=== PATIENT | male | born 1975 | race Caucasian/White ===

== ENCOUNTER 2017-11-11 09:56 | Emergency (ER) | payer OTHER ==
[2017-11-11 11:10] VITALS: BMI 24.1
[2017-11-11] MEDS ORDERED: Morphine 2 mg/ml ISec IVP STA (11:42)
[2017-11-11] MEDS ORDERED: Clindamycin 600mg/50ml D5W 600 MG/50 ML VIAL IVPB STA (11:54)
--- NOTE | 2017-11-11 12:00 | ED PDOC ---
Arrival/HPI - General Chief Complaint: Abnormal Skin Integrity Time Seen by Provider: 11/11/17 11:05 - History of Present Illness Narrative History of Present Illness (Text): 42 y/o M p/w R leg pain x few days. Patient states sutures on his R thigh spontaneously ripped and he has been having pain of the area. He denies fever, chills, chest pain, dyspnea, nausea, vomiting. Patient comes with paper work indicating that he was admitted at [facility] and discharged within the past 2 weeks. He states he was admitted there for over 30 days. He was diagnosed with abscess and DVT. He states he filled his discharge prescription for Percocet but he never filled his prescription for Eliquis, states he did not realize that was on the discharge papers. His discharge papers indicate that he is to follow up with Abimael Berumen ([facility]) and Dr. Gutierres (surgery) but he has not made an appointment with either. He states he did not realize he had to follow up with them. When asked what he thought was going to happen with the sutures in his leg , he states, "No se." [facility] [place] Emergency Department Technician [id number] Past Medical History - Cardiac Hx Cardiac Disorders: Yes - Integumentary Hx Dermatological Disorder: Yes (right thigh abscess) - Psychiatric Hx Substance Use: No Family/Social History Family/Social History: No Known Family HX Smoking Status: Current Some Days Smoker Hx Alcohol Use: Yes Hx Substance Use: No Allergies/Home Meds Allergies/Adverse Reactions: Allergies No Known Allergies Allergy (Verified 11/11/17 11:08) Home Medications: Home Meds Medication Instructions Recorded Confirmed Apixaban [Eliquis] 5 mg PO BID 11/11/17 11/11/17 oxyCODONE/Acetaminophen [Percocet 1 tab PO PRN PRN 11/11/17 11/11/17 5/325 mg Tab] Review of Systems - Physician Review All systems were reviewed & negative as marked: Yes - Review of Systems Constitutional: absent: Fevers Respiratory: absent: SOB Cardiovascular: absent: Chest Pain Physical Exam - Physical Exam Narrative Physical Exam (Text): Gen: NAD Head: NC/AT Eyes: PERRL ENT: MMM Neck: Supple Chest: No tenderness CV: Regular rate Lungs: CTA b/l Abd: Soft, NT Back: No CVA tenderness Extremities: FROM x 4. No edema. Skin: Incised area on R medial thigh with ruptured sutures, surrounding induration, nontender. Small amount of pus seen within wound. Neuro: Alert, no focal deficit Vital Signs Temp Pulse Resp BP Pulse Ox 11/11/17 13:39 62 20 130/84 100 11/11/17 10:19 98.8 F 88 18 133/83 100 Medical Decision Making ED Course and Treatment: Repeat duplex negative. Repeat labs to evaluate for leukocytosis. Restart antibiotics. Spent considerable amount of time with patient explaining his discharge diagnoses from [facility] and the plan for follow up with both doctors. Sutures from open wound removed and wound dressed with bacitracin and gauze. Remaining sutures left in place for patient's follow up. - Lab Interpretations Lab Results: 11/11/17 12:26 11/11/17 12:26 Lab Results 11/11/17 12:26: Sodium 140, Potassium 3.8, Chloride 105, Carbon Dioxide 27, Anion Gap 12, BUN 9, Creatinine 0.6 L, Est GFR ( Amer) > 60, Est GFR (Non -Af Amer) > 60, Random Glucose 87, Calcium 9.7, Total Bilirubin 0.2, AST 25, ALT 19, Alkaline Phosphatase 103, Total Protein 8.4 H, Albumin 4.2, Globulin 4.2 , Albumin/Globulin Ratio 1.0 L 11/11/17 12:26: WBC 7.9, RBC 4.13, Hgb 12.4 L, Hct 37.2 L, MCV 90.1, MCH 30.0, MCHC 33.3, RDW 14.5, Plt Count 366, MPV 9.1, Gran % 45.0 L, Lymph % (Auto) 26.3 , [place] % (Auto) 7.1 H, Eos % (Auto) 20.6 H, Baso % (Auto) 1.0, Gran # 3.53, Lymph # (Auto) 2.1, [place] # (Auto) 0.6, Eos # (Auto) 1.6 H, Baso # (Auto) 0.08, Neutrophils % (Manual) 59, Lymphocytes % (Manual) 19 L, Monocytes % (Manual) 16 H, Eosinophils % (Manual) 6 H, Platelet Evaluation Normal - RAD Interpretation Radiology Orders: 11/11/17 11:41 DUPLEX LOWER EXTRM VEIN BILAT [US] Stat - Medication Orders Current Medication Orders: Discontinued Medications Clindamycin Phosphate (Cleocin) 600 mg in 50 mls @ 50 mls/hr IVPB STAT STA PRN Reason: Protocol Stop: 11/11/17 12:53 Last Admin: 11/11/17 12:29 Dose: 50 mls/hr eMAR Start Stop Document 11/11/17 12:29 RY (Rec: 11/11/17 12:30 [id number] Intravenous Solution Start Date 11/11/17 Start Time 12:29 End Date 11/11/17 End time 13:01 Total Infusion Time 32 Morphine Sulfate (Morphine) 2 mg IVP STAT STA Stop: 11/11/17 11:43 Last Admin: 11/11/17 12:28 Dose: 2 mg MAR Pain Assessment Document 11/11/17 12:28 Maren (Rec: 11/11/17 12:29 [id number]) Pain Reassessment Is this a pain reassessment? No Sleep Is patient sleeping during reassessment? No Presence of Pain Presence of Pain Yes Pain Scale Used Pain Scale Used Numeric IVP Administration Document 11/11/17 12:28 RY (Rec: 11/11/17 12:29 [id number]) Charges for Administration # of IVP Administrations 1 Re-Assess: LEXI Pain Assessment Document 11/11/17 13:28 Maren (Rec: 11/11/17 13:42 [id number]) Pain Reassessment Is this a pain reassessment? Yes Sleep Is patient sleeping during reassessment? No Presence of Pain Presence of Pain Yes Pain Scale Used Pain Scale Used Numeric Description Description Intermittent Intensity of Pain at present 4 Disposition/Present on Arrival - Present on Arrival Any Indicators Present on Arrival: Yes History of DVT/PE: Yes History of Uncontrolled Diabetes: No Urinary Catheter: No History of Decub. Ulcer: No History Surgical Site Infection Following: None - Disposition Have Diagnosis and Disposition been Completed?: Yes Diagnosis: Encounter for wound care, Abscess Disposition: HOME/ ROUTINE Disposition Time: 13:10 Patient Plan: Discharge Condition: FAIR Discharge Instructions (ExitCare): Abscess Incision and Drainage (DC) Prescriptions: Clindamycin [Cleocin] 300 mg PO QID #40 cap Referrals: Bautista Gutierres MD [Medical Doctor] - Follow up with primary [facility] [Outside] - Follow up with primary [facility] [Outside] - Follow up with primary Forms: [employer] (Italian)
[2017-11-11 12:32] LABS: BASO # 0.08 K/mm3 (0.0-2.0); EOS # 1.6 (0.0-0.7); EOS % 20.6 % (1.5-5.0); GRAN # 3.53 (1.4-6.5); HEMOGLOBIN 12.4 g/dL (14.0-18.0); LYMPH # 2.1 (1.2-3.4); LYMPH % 26.3 % (22.0-35.0); MEAN CELL VOLUME 90.1 fl (80.0-105.0); MEAN CORPUSCULAR HGB CONC 33.3 g/dl (31.0-37.0); MEAN PLATELET VOLUME 9.1 fl (7.0-11.0); MONO # 0.6 (0.1-0.6); MONO % 7.1 % (1.0-6.0); PLATELET COUNT 366 10^3/uL (120.0-450.0); RBC 4.13 10^6/uL (3.5-6.1); RED CELL DISTRIBUTION WIDTH 14.5 % (11.5-14.5); WHITE BLOOD COUNT 7.9 10^3/ul (4.5-11.0)
[2017-11-11 12:48] LABS: ALBUMIN 4.2 g/dL (3.0-4.8); ALT/SGPT 19 U/L (7-56); AST/SGOT 25 U/L (17-59); BLOOD UREA NITROGEN 9 mg/dL (7-21); CALCIUM 9.7 mg/dL (8.4-10.5); GFR NON-AFRICAN AMERICAN > 60
[2017-11-11 13:05] LABS: EOSINOPHIL 6 % (0.0-3.0); LYMPHOCYTE 19 % (22.0-35.0); MONOCYTE 16 % (1.0-6.0); NEUTROPHIL 59 % (50.0-70.0); PLATELET ESTIMATE NORMAL (NORMAL)
[2017-11-11 15:14] VITALS: BP 129/77; PULSE 66; RESP 18; TEMP 98.6; O2SAT 99
--- NOTE | 2017-11-11 17:53 | US ---
HISTORY: Leg pain and swelling. Evaluate for DVT PHYSICIAN(S): Santhosh Carlton MD. TECHNIQUE: Duplex sonography and color-flow Doppler with graded compression were used to evaluate the deep venous systems of both lower extremities. FINDINGS: The visualized deep venous systems of both lower extremities are sonographically normal and compressible. Normal wave forms and augmentation are seen. There is no sonographic evidence for deep venous thrombosis in the visualized segments of both lower extremities. IMPRESSION: No sonographic evidence for deep venous thrombosis in the visualized segments of both lower extremities.
== END 2017-11-11 15:19 | disposition home or self-care (01) ==
LOC: ED 09:56
DX: L02.415 Cutaneous abscess of right lower limb (principal)
CPT/HCPCS: 80053; 85025; 93970; 96365; 96375; 99283; J2270

== ENCOUNTER 2018-02-18 01:52 | Observation (INO) | payer OTHER ==
--- NOTE | 2018-02-18 02:03 | ED PDOC ---
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 Patient reports he was vomiting for 2 days and states he noted blood in his vomit tonight. Patient admits to drinking tonight and states he had multiple shots of alcohol. Patient denies any fever, chills, chest pain, shortness of breath, diarrhea, urinary symptoms, back pain, neck pain, headache, dizziness, or any other complaints. Time/Duration: Other (2 days) Symptom Onset: Gradual Symptom Course: Unchanged Activities at Onset: Light Past Medical History - Provider Review Nursing Documentation Reviewed: Yes - Cardiac Hx Cardiac Disorders: Yes - Integumentary Hx Dermatological Disorder: Yes (right thigh abscess) - Psychiatric Hx Substance Use: No Family/Social History - Physician Review Nursing Documentation Reviewed: Yes Family/Social History: No Known Family HX Smoking Status: Current Some Days Smoker Hx Alcohol Use: Yes Hx Substance Use: No Allergies/Home Meds Allergies/Adverse Reactions: Allergies No Known Allergies Allergy (Verified 11/11/17 11:08) Home Medications: Home Meds Medication Instructions Recorded Confirmed Apixaban [Eliquis] 5 mg PO BID 11/11/17 11/11/17 oxyCODONE/Acetaminophen [Percocet 1 tab PO PRN PRN 11/11/17 11/11/17 5/325 mg Tab] Review of Systems - Physician Review All systems were reviewed & negative as marked: Yes - Review of Systems Constitutional: absent: Fevers, Other (Chills) Respiratory: absent: SOB Cardiovascular: absent: Chest Pain Gastrointestinal: Nausea, Vomiting, Hematemesis. absent: Abdominal Pain, Diarrhea Genitourinary Male: absent: Dysuria, Frequency, Hematuria Musculoskeletal: absent: Back Pain, Neck Pain Neurological: absent: Headache, Dizziness Physical Exam Vital Signs Reviewed: Yes Temperature: Afebrile Blood Pressure: Normal Pulse: Regular Respiratory Rate: Normal Appearance: Positive for: Well-Appearing, Non-Toxic, Comfortable Pain Distress: None Mental Status: Positive for: Alert and Oriented X 3 - Systems Exam Head: Present: Atraumatic, Normocephalic Pupils: Present: PERRL Extroacular Muscles: Present: EOMI Conjunctiva: Present: Normal Mouth: Present: Moist Mucous Membranes Neck: Present: Normal Range of Motion Respiratory/Chest: Present: Clear to Auscultation, Good Air Exchange. No: Respiratory Distress, Accessory Muscle Use Cardiovascular: Present: Regular Rate and Rhythm, Normal S1, S2. No: Murmurs Abdomen: No: Tenderness, Distention, Peritoneal Signs Back: Present: Normal Inspection Upper Extremity: Present: Normal Inspection. No: Cyanosis, Edema Lower Extremity: Present: Normal Inspection. No: Edema Neurological: Present: GCS=15, CN II-XII Intact, Speech Normal Skin: Present: Warm, Dry, Normal Color. No: Rashes Psychiatric: Present: Alert, Oriented x 3, Normal Insight, Normal Concentration, Intoxicated Medical Decision Making ED Course and Treatment: 02/18/18 02:02 Impression: 42 year old male presents complaining of vomiting for the past 2 days and noted blood in vomit tonight. Patient admits to drinking tonight. Plan: -- Labs -- EKG -- Chest X-ray -- Pepcid, IV Fluids, Zofran Inj -- Reassess and disposition Progress Notes: 02/18/18 02:16 EKG shows NSR at 74 BPM normal EKG. Interpreted by me. 02/18/18 03:42 CXR Impression: As read by me, no acute process. 02/18/18 04:11 Case discussed with medical management trainer and Dr. Earnest Quiñones who is aware and agrees with the plan. Accepts patient into hospitalist service. - Lab Interpretations I have reviewed the lab results: Yes - RAD Interpretation Clothing Man: ED Physician - EKG Interpretation Interpreted by ED Physician: Yes Type: 12 lead EKG - Scribe Statement The provider has reviewed the documentation as recorded by the Milvia Carrillo Provider Scribe Attestation: All medical record entries made by the Joseloibe were at my direction and personally dictated by me. I have reviewed the chart and agree that the record accurately reflects my personal performance of the history, physical exam, medical decision making, and the department course for this patient. I have also personally directed, reviewed, and agree with the discharge instructions and disposition. Disposition/Present on Arrival - Present on Arrival Any Indicators Present on Arrival: No History of DVT/PE: Yes History of Uncontrolled Diabetes: No Urinary Catheter: No History of Decub. Ulcer: No History Surgical Site Infection Following: None - Disposition Have Diagnosis and Disposition been Completed?: Yes Diagnosis: Hematemesis, Alcohol intoxication, Elevated troponin Disposition: HOSPITALIZED Disposition Time: 04:41 Patient Plan: Observation Condition: STABLE
[2018-02-18] MEDS ORDERED: Sodium Chloride 0.9% 1,000 ML IV SCH (02:15)
[2018-02-18 03:01] LABS: ALB/GLOB RATIO 1.2 (1.1-1.8); ALBUMIN 4.4 g/dL (3.0-4.8); ALT/SGPT 23 U/L (7-56); AST/SGOT 25 U/L (17-59); BLOOD UREA NITROGEN 11 mg/dL (7-21); CALCIUM 8.9 mg/dL (8.4-10.5); GFR NON-AFRICAN AMERICAN > 60; LIPASE 46 U/L (23-300)
[2018-02-18 03:17] LABS: HEMOGLOBIN 15.5 g/dL (14.0-18.0); MEAN CELL VOLUME 83.5 fl (80.0-105.0); MEAN CORPUSCULAR HEMOGLOBIN 29.4 pg (25.0-35.0); MEAN CORPUSCULAR HGB CONC 35.1 g/dl (31.0-37.0); MEAN PLATELET VOLUME 9.1 fl (7.0-11.0); RBC 5.28 10^6/uL (3.5-6.1); RED CELL DISTRIBUTION WIDTH 15.3 % (11.5-14.5)
[2018-02-18 03:21] LABS: INR 0.97; PARTIAL THROMBOPLASTIN TIME 29.7 Seconds (25.1-36.5); PROTHROMBIN TIME 11.1 SECONDS (9.4-12.5)
[2018-02-18 03:35] LABS: TROPONIN I 0.19 ng/mL
--- NOTE | 2018-02-18 05:03 | CP.PCM.HP ---
History of Present Illness - History of Present Illness History of Present Illness: Víctor Marin DO PGY1 Internal Medicine Cath Laboratory Technician CC: Hemetemesis / EtOH Patient is a 42M w/ a PMH of DVT, who presented to [facility] ED on 02/18/17 via EMS for complaints of vomiting x2 days. Upon evaluation it was noted that patient is very intoxicated. He reported that he has been having episodes of vomiting blood over the past few days, and reports emesis is grossly bloody. Upon chart review it was noted that patient has had a hx of DVT where he was to follow up w/ [facility] at [facility], however it appears patient has not followed up; He does report that he is NOT on any form of anticoagulation. Upon further evaluation he reported he has had bloody stools however bedside guac was negative. He reports that this emesis has no inciting or remitting event. Patient denies dinking however, he then also reported drinking "a little" today. Upon presentation in ED patient has a EtOH level of 230. Upon ROS pt reported mild chest pain prior to presentation which has resolved however he does not have CP at time of evaluation. Patient denies any SOB, Cough, Abd pain, N/V/D/C, Urinary discomfort. Remainder of 12 system ROS is negative. PMD: Denies Pharmacy: Denies PMH: Denies PSH: Denies Allergies: NKDA Fam Hx: Denies Social: 6-7 cig daily, 6pk beer daily, no illicit Present on Admission - Present on Admission Any Indicators Present on Admission: No History of DVT/PE: Yes Review of Systems - Review of Systems All systems: reviewed and no additional remarkable complaints except Review of Systems: as per HPI Past Patient History - Past Social History Smoking Status: Current Some Days Smoker - CARDIAC Hx Cardiac Disorders: Yes - ENDOCRINE/METABOLIC Hx Diabetes Mellitus Type 2: Yes - INTEGUMENTARY Hx Dermatological Problems: Yes (right thigh abscess) - PSYCHIATRIC Hx Substance Use: No - ANESTHESIA Hx Anesthesia: No Hx Anesthesia Reactions: No Hx Malignant Hyperthermia: No Meds Allergies/Adverse Reactions: Allergies Allergy/AdvReac Type Severity Reaction Status Date / Time No Known Allergies Allergy Verified 11/11/17 11:08 Physical Exam - Constitutional Appears: Confused - Head Exam Head Exam: ATRAUMATIC, NORMOCEPHALIC - Eye Exam Eye Exam: EOMI, Normal appearance, PERRL - ENT Exam ENT Exam: Mucous Membranes Moist - Respiratory Exam Respiratory Exam: Clear to Auscultation Bilateral, NORMAL BREATHING PATTERN - Cardiovascular Exam Cardiovascular Exam: RRR, +S1, +S2 - GI/Abdominal Exam GI & Abdominal Exam: Normal Bowel Sounds, Soft. absent: Tenderness - Extremities Exam Additional comments: HOMANS + R>L Distal pulses 2+ DP/PT BL - Neurological Exam Additional comments: Lethargic/ Somnolent; Appears to be intoxicate Requires continual arousable to hold conversation - Skin Skin Exam: Dry, Intact, Normal Color, Warm Results - Vital Signs Recent Vital Signs: Last Vital Signs Temp 98.1 F 02/18/18 02:19 Pulse 64 02/18/18 04:55 Resp 18 02/18/18 04:55 BP 119/79 02/18/18 04:55 Pulse Ox 99 02/18/18 04:55 - Labs Result Diagrams: 02/18/18 02:40 02/18/18 02:40 Labs: Laboratory Results - last 24 hr 02/18/18 02/18/18 02/18/18 02:40 02:40 02:40 WBC RBC Hgb Hct MCV MCH MCHC RDW Plt Count MPV PT 11.1 INR 0.97 APTT 29.7 Sodium 144 Potassium 4.0 Chloride 108 H Carbon Dioxide 28 Anion Gap 11 BUN 11 Creatinine 0.8 Est GFR ( Amer) > 60 Est GFR (Non-Af Amer) > 60 Random Glucose 107 Calcium 8.9 Total Bilirubin 0.2 AST 25 ALT 23 Alkaline Phosphatase 121 Lactate Dehydrogenase 558 Total Creatine Kinase 132 Troponin I 0.19 H* Total Protein 8.1 Albumin 4.4 Globulin 3.7 Albumin/Globulin Ratio 1.2 Lipase 46 Alcohol, Quantitative 230 H Blood Type Antibody Screen BBK History Checked 02/18/18 02/18/18 02:40 02:40 WBC 7.0 RBC 5.28 Hgb 15.5 D Hct 44.1 MCV 83.5 D MCH 29.4 MCHC 35.1 RDW 15.3 H Plt Count 396 MPV 9.1 PT INR APTT Sodium Potassium Chloride Carbon Dioxide Anion Gap BUN Creatinine Est GFR ( Amer) Est GFR (Non-Af Amer) Random Glucose Calcium Total Bilirubin AST ALT Alkaline Phosphatase Lactate Dehydrogenase Total Creatine Kinase Troponin I Total Protein Albumin Globulin Albumin/Globulin Ratio Lipase Alcohol, Quantitative Blood Type O POSITIVE Antibody Screen Negative BBK History Checked No verified bt Assessment & Plan - Assessment and Plan (Free Text) Assessment: Patient is a 42M w/ a PMH of DVT, who presented to [facility] ED on 02/18/17 via EMS for complaints of hemetemesis x2 days. Upon workup patient found to have elevated troponins; and EtOH of 230; admitted for management / work up of hemetemesis, EtOH withdrawal, NSTEMI, and DVT r/o PLAN: Hemetemesis Occult negative; Pt. Refused NG tube; could not perform gastric lavage NO reported hemetemesis by ED staff 02/18 - CXR wnl Monitor H/H Daily Will hold ASA + Heparin pending cardiology eval NPO for now Zofran prn N/V EtOH Withdrawal Given EtOH 230 and patient is able to be aroused and hold brief conversation; p atient may be expected to undergo significant withdrawal Ativan 2 Q4 LUZ Ativan 2 Q2 PRN Seizure Start Thiamine Folate Multivit after banana bag Bananabag x1 @ 100cc/hr CIWA Seizure Precautions NSTEMI ED Trop = 0.19; EKG NSR w/o ST/T wave changes Trop EKG Lipid A1C Will hold ASA and Heparin given Pt. C/o hemetemesis Cardiology DVT r/o Duplex PPX: GI: Protonix DVT: No heparin for now; can start SCD once DVT r/o DISPO: Admit to tele Patient was seen, examined, and discussed w/ attending physician Dr. Svitlana Marin DO PGY1 - Internal Medicine Cath Laboratory Technician
[2018-02-18] MEDS ORDERED: Multivitamin (MVI) 10 ML, Thiamine 100 MG, Folic Acid 1 MG in Sodium Chloride 0.9% 1,00... IV ONE (06:07)
[2018-02-18 08:20] VITALS: BMI 23.8
[2018-02-18 08:36] VITALS: O2SAT 97
--- NOTE | 2018-02-18 10:20 | RAD ---
Date of service: 02/18/2018 HISTORY: medical clearance COMPARISON: No prior. FINDINGS: LUNGS: No active pulmonary disease. PLEURA: No significant pleural effusion identified, no pneumothorax apparent. CARDIOVASCULAR: No aortic atherosclerotic calcification present. Normal cardiac size. No pulmonary vascular congestion. OSSEOUS STRUCTURES: No significant abnormalities. VISUALIZED UPPER ABDOMEN: Normal. OTHER FINDINGS: None. IMPRESSION: No active disease.
--- NOTE | 2018-02-18 10:33 | CARD ---
APPROVED REPORT Date of service: 02/18/2018 EKG Measurement Heart [id number] <Conclusion> Normal sinus rhythm T wave abnormality, consider anterior ischemia Prolonged QT Abnormal ECG
--- NOTE | 2018-02-18 10:35 | CARD ---
APPROVED REPORT Date of service: 02/18/2018 EKG Measurement Heart [id number] <Conclusion> Normal sinus rhythm Normal ECG
[2018-02-18 10:39] LABS: BASO # 0.06 K/mm3 (0.0-2.0); BASO % 1.1 % (0.0-3.0); EOS # 1.2 (0.0-0.7); EOS % 21.1 % (1.5-5.0); GRAN % 35.2 % (50.0-68.0); HEMOGLOBIN 14.1 g/dL (14.0-18.0); LYMPH # 2.1 (1.2-3.4); LYMPH % 36.8 % (22.0-35.0); MEAN CELL VOLUME 83.2 fl (80.0-105.0); MEAN CORPUSCULAR HEMOGLOBIN 28.5 pg (25.0-35.0); MEAN CORPUSCULAR HGB CONC 34.3 g/dl (31.0-37.0); MEAN PLATELET VOLUME 9.8 fl (7.0-11.0); MONO # 0.3 (0.1-0.6); MONO % 5.8 % (1.0-6.0); PLATELET COUNT 364 10^3/uL (120.0-450.0); RBC 4.94 10^6/uL (3.5-6.1); RED CELL DISTRIBUTION WIDTH 15.3 % (11.5-14.5); WHITE BLOOD COUNT 5.7 10^3/uL (4.5-11.0)
[2018-02-18 10:50] LABS: ALB/GLOB RATIO 1.2 (1.1-1.8); ALBUMIN 3.9 g/dL (3.0-4.8); ALT/SGPT 20 U/L (7-56); AST/SGOT 21 U/L (17-59); BLOOD UREA NITROGEN 11 mg/dL (7-21); CALCIUM 8.5 mg/dL (8.4-10.5); GFR NON-AFRICAN AMERICAN > 60; HDL CHOLESTEROL 48 mg/dL (29-60)
[2018-02-18 11:01] LABS: LDL CHOLESTEROL 85 mg/dL (0-129)
[2018-02-18 11:12] LABS: BAND 1 % (0-2); EOSINOPHIL 20 % (0.0-3.0); LYMPHOCYTE 42 % (22.0-35.0); MONOCYTE 9 % (1.0-6.0); NEUTROPHIL 28 % (50.0-70.0)
[2018-02-18 11:50] VITALS: BP 118/69; RESP 18; TEMP 97.5
--- NOTE | 2018-02-18 13:00 | CON ---
DATE: 02/18/2018 REQUESTING PHYSICIAN: Dr. Marin. REASON FOR CONSULTATION: Elevated troponin. HISTORY OF PRESENT ILLNESS: This is a 42-year-old Kuwaiti-speaking male who presents to the emergency room with complaints of vomiting blood. He apparently had evidence of blood-tinged vomitus for the past several days. He did admit to heavy alcohol intake upon admission and had an alcohol level of 230 upon admission. He is currently seen in bed on telemetry. He is intoxicated and extremely somnolent and unable to provide any history. Past history is obtained via the chart. He apparently had a DVT in the past and had been treated with Eliquis; it is unclear if he is still taking that medication at this time. He also reportedly had a right thigh abscess in the past. He is not hypertensive or diabetic. PAST MEDICAL HISTORY: Otherwise only as mentioned above. MEDICATIONS AT HOME: Include Percocet and possibly Eliquis. SOCIAL HISTORY: He drinks heavily at times and also a smoker. FAMILY HISTORY: Unobtainable. REVIEW OF SYSTEMS: Unobtainable. PHYSICAL EXAMINATION GENERAL: He is a middle-aged man who appears acutely intoxicated. VITAL SIGNS: Blood pressure is 116/80 with a pulse of 70 and sinus, respirations are 16. He is afebrile. HEENT: No JVD. CHEST: Few scattered rhonchi. HEART: PMI in normal position. No pathological gallops noted. ABDOMEN: Soft, nontender with normoactive bowel sounds. EXTREMITIES: No edema. DIAGNOSTIC DATA: Potassium 4.0, BUN and creatinine 11 and 0.8. Troponin is 0.19. CK is 132. White count 7.0, hemoglobin and hematocrit of 15.7 and 44.1 with a platelet count of 396,000. As mentioned his alcohol level was 230. Electrocardiogram reveals a sinus rhythm with nonspecific ST-T abnormalities. Chest x-ray reveals a normal cardiac silhouette with mildly increased perihilar markings. IMPRESSION 1. Elevated troponin, unclear significance or etiology. No evidence of acute cardiac ischemia by history or electrocardiogram. 2. Acute alcohol intoxication. 3. Possible hematemesis, I would suspect this is most likely due to alcoholic gastritis. RECOMMENDATIONS: Followup enzymes will be obtained. Echocardiogram has been ordered to evaluate for any wall motion abnormalities. Obviously alcohol abstinence is strongly encouraged. Further recommendations will be made based upon his clinical course and the results of the above testing. Thank you for this consultation. Sivakumar Barry MD
[2018-02-18] MEDS ORDERED: Iohexol 350 MG/100 ML VIAL ONE (14:26)
[2018-02-18 14:32] VITALS: PULSE 70
--- NOTE | 2018-02-18 15:04 | CT ---
Date of service: 02/18/2018 PROCEDURE: CT Chest with contrast (Pulmonary Angiogram) HISTORY: hx of DVT noncompliant with eliquis COMPARISON: None available. TECHNIQUE: Axial computed tomography images were obtained of the chest in the pulmonary arterial phase of enhancement. Coronal and sagittal reformatted images were created and reviewed. Intravenous contrast dose: 100 mL Omnipaque 350 Radiation dose: Total exam DLP = 314.9 mGy-cm. This CT exam was performed using one or more of the following dose reduction techniques: Automated exposure control, adjustment of the mA and/or kV according to patient size, and/or use of iterative reconstruction technique. FINDINGS: PULMONARY ARTERIES: Unremarkable. No pulmonary embolism. AORTA: No acute findings. No thoracic aortic aneurysm. No aortic atherosclerotic calcification or mural plaque present. LUNGS: Bibasilar atelectasis. No nodule, mass or pulmonary consolidation. PLEURAL SPACES: Unremarkable. No effusion or pneumothorax. HEART: Unremarkable. No cardiomegaly. No significant pericardial effusion. LYMPH NODES: Scattered calcified mediastinal lymph nodes. No lymphadenopathy. BONES, CHEST WALL: Unremarkable. No fracture or destructive lesion OTHER FINDINGS: Unremarkable. IMPRESSION: Unremarkable CT pulmonary angiogram. No pulmonary embolus.
--- NOTE | 2018-02-18 16:13 | CP.PCM.DIS ---
Provider - Provider Date of Admission: 02/18/18 04:37 Attending physician: Eliz Marin DO Consults: 02/18/18 05:59 Cardiology Consult Routine Comment: Consulting Provider: Joshua Hicks Consulting Physician: Joshua Hicks Reason for Consult: NSTEMI/ Elevated Trop Time Spent in preparation of Discharge (in minutes): 45 Diagnosis - Discharge Diagnosis (1) Alcohol intoxication Status: Acute (2) Hematemesis Status: Acute Hospital Course - Lab Results Lab Results: Most Recent Lab Values WBC 5.7 10^3/uL (4.5-11.0) 02/18/18 10:00 RBC 4.94 10^6/uL (3.5-6.1) 02/18/18 10:00 Hgb 14.1 g/dL (14.0-18.0) 02/18/18 10:00 Hct 41.1 % (42.0-52.0) L 02/18/18 10:00 MCV 83.2 fl (80.0-105.0) 02/18/18 10:00 MCH 28.5 pg (25.0-35.0) 02/18/18 10:00 MCHC 34.3 g/dl (31.0-37.0) 02/18/18 10:00 RDW 15.3 % (11.5-14.5) H 02/18/18 10:00 Plt Count 364 10^3/uL (120.0-450.0) 02/18/18 10:00 MPV 9.8 fl (7.0-11.0) 02/18/18 10:00 Gran % 35.2 % (50.0-68.0) L 02/18/18 10:00 Lymph % (Auto) 36.8 % (22.0-35.0) H 02/18/18 10:00 [place] % (Auto) 5.8 % (1.0-6.0) 02/18/18 10:00 Eos % (Auto) 21.1 % (1.5-5.0) H 02/18/18 10:00 Baso % (Auto) 1.1 % (0.0-3.0) 02/18/18 10:00 Gran # 2.00 (1.4-6.5) 02/18/18 10:00 Lymph # (Auto) 2.1 (1.2-3.4) 02/18/18 10:00 [place] # (Auto) 0.3 (0.1-0.6) 02/18/18 10:00 Eos # (Auto) 1.2 (0.0-0.7) H 02/18/18 10:00 Baso # (Auto) 0.06 K/mm3 (0.0-2.0) 02/18/18 10:00 Neutrophils % (Manual) 28 % (50.0-70.0) L 02/18/18 10:00 Band Neutrophils % 1 % (0-2) 02/18/18 10:00 Lymphocytes % (Manual) 42 % (22.0-35.0) H 02/18/18 10:00 Monocytes % (Manual) 9 % (1.0-6.0) H 02/18/18 10:00 Eosinophils % (Manual) 20 % (0.0-3.0) H 02/18/18 10:00 PT 11.1 SECONDS (9.4-12.5) 02/18/18 02:40 INR 0.97 02/18/18 02:40 APTT 29.7 Seconds (25.1-36.5) 02/18/18 02:40 Sodium 145 mmol/L (132-148) 02/18/18 10:00 Potassium 3.9 mmol/L (3.6-5.0) 02/18/18 10:00 Chloride 110 mmol/L (98-107) H 02/18/18 10:00 Carbon Dioxide 24 mmol/L (21-33) 02/18/18 10:00 Anion Gap 14 (10-20) 02/18/18 10:00 BUN 11 mg/dL (7-21) 02/18/18 10:00 Creatinine 0.8 mg/dl (0.8-1.5) 02/18/18 10:00 Est GFR ( Amer) > 60 02/18/18 10:00 Est GFR (Non-Af Amer) > 60 02/18/18 10:00 Random Glucose 87 mg/dL (70-110) 02/18/18 10:00 Calcium 8.5 mg/dL (8.4-10.5) 02/18/18 10:00 Phosphorus 3.5 mg/dL (2.5-4.5) 02/18/18 10:00 Magnesium 2.0 mg/dL (1.7-2.2) 02/18/18 10:00 Total Bilirubin 0.2 mg/dL (0.2-1.3) 02/18/18 10:00 AST 21 U/L (17-59) 02/18/18 10:00 ALT 20 U/L (7-56) 02/18/18 10:00 Alkaline Phosphatase 108 U/L (38-126) 02/18/18 10:00 Lactate Dehydrogenase 558 U/L (333-699) 02/18/18 02:40 Total Creatine Kinase 132 U/L (35-230) 02/18/18 02:40 Troponin I 0.15 ng/mL H* D 02/18/18 10:00 Total Protein 7.2 g/dL (5.8-8.3) 02/18/18 10:00 Albumin 3.9 g/dL (3.0-4.8) 02/18/18 10:00 Globulin 3.2 gm/dL 02/18/18 10:00 Albumin/Globulin Ratio 1.2 (1.1-1.8) 02/18/18 10:00 Triglycerides 138 mg/dL (35-160) 02/18/18 10:00 Cholesterol 150 mg/dL (130-200) 02/18/18 10:00 LDL Cholesterol Direct 85 mg/dL (0-129) 02/18/18 10:00 HDL Cholesterol 48 mg/dL (29-60) 02/18/18 10:00 Lipase 46 U/L (23-300) 02/18/18 02:40 Alcohol, Quantitative 230 mg/dL (0-10) H 02/18/18 02:40 Blood Type O POSITIVE 02/18/18 02:40 Blood Type Confirm O POSITIVE 02/18/18 04:00 Antibody Screen Negative 02/18/18 02:40 BBK History Checked No verified bt 02/18/18 02:40 - Hospital Course Hospital Course: HPI at time of admission: "42M w/ a PMH of DVT, who [place] [facility] [place] via EMS for complaints of vomiting x2 days. Upon evaluation it was noted that patient is very intoxicated. He reported that he has been having episodes of vomiting blood over the past few days, and reports emesis is grossly bloody. Upon chart review it was noted that patient has had a hx of DVT where he was to follow up w/ [facility] [place] [facility], however it appears patient has not followed up; He does report that he is NOT on any form of anticoagulation. Upon further evaluation he reported he has had bloody stools however bedside guac was negative. He reports that this emesis has no inciting or remitting event. Patient denies drinking however, he then also reported drinking "a little" today. Upon presentation in ED patient has a EtOH level of 230. Upon ROS pt reported mild chest pain prior to presentation which has resolved however he does not have CP at time of evaluation. Patient denies any SOB, Cough, Abd pain, N/V/D/C, Urinary discomfort. Remainder of 12 system ROS is negative." On workup patient was found to have elevated troponins; and EtOH of 230; admitted for management / work up of hemetemesis, EtOH withdrawal, NSTEMI, and DVT r/o. Pt had no further episodes of hematemesis while being worked up in ED and while admitted to tele floor. Stool occult was negative. Gastric lavage could not be performed due to pt refusal. Pt was also managed for EtOH withdrawal via CIWA protocol. Cardiology was consulted for NSTEMI (Dr. Barry). Pt decided to leave against medical advice on 02/18/18. Risks and benefits of continuing treatment were discussed with patient. Risks were outlined, including but not limited to seizures, worsening tremors, coma, and possible . Pt understood the course of his decision and chose to leave the hospital against medical advice after this discussion at bedside. AMA forms signed at bedside with RN as witness. Attending physician, Dr. Eliz Marin aware. Pt given scripts for ASA, thiamine, and folic acid at time of departure. Discharge Exam - Head Exam Head Exam: ATRAUMATIC, NORMOCEPHALIC Additional comments: Unable to assess due to pt leaving against medical advice. Discharge Plan - Discharge Medications Prescriptions: Aspirin 81 mg PO DAILY #7 tab.chew Folic Acid 1 mg PO DAILY #14 tab Thiamine [Vitamin B1 Tab] 100 mg PO DAILY #14 tab - Follow Up Plan Condition: UNKNOWN Disposition: AGAINST MEDICAL ADVICE
[2018-02-19] MEDS ORDERED: Multivitamin With Minerals Tab PO SCH (10:00)
== END 2018-02-18 19:25 | disposition left against medical advice (07) ==
LOC: ED 01:52 → ERH 04:37 → 2RSO 05:48
PROVIDERS: ADMIT Internal Medicine; ATTEND Hospitalist
DX: K29.20 Alcoholic gastritis without bleeding (principal); K92.0 Hematemesis; F10.129 Alcohol abuse with intoxication, unspecified; Y90.7 Blood alcohol level of 200-239 mg/100 ml; E11.9 Type 2 diabetes mellitus without complications; F17.200 Nicotine dependence, unspecified, uncomplicated; Z79.01 Long term (current) use of anticoagulants; Z86.718 Personal history of other venous thrombosis and embolism; F10.10 Alcohol abuse, uncomplicated
CPT/HCPCS: 71045; 71275; 80053; 80061; 80320; 82550; 83036; 83615; 83690; 83735; 84100; 84484; 85025; 85027; 85610; 85730; 86850; 86900; 93005; 96374; 96375; 96376; 99285; C9113; G0378; J2060; J2405; J3411; J7030; Q9967

== ENCOUNTER 2018-03-22 00:40 | Emergency (ER) | payer SELFPAY ==
--- NOTE | 2018-03-22 00:53 | ED PDOC ---
Arrival/HPI - General Time Seen by Provider: 03/22/18 00:45 Historian: EMS EM Caveat: Intoxicated - History of Present Illness Narrative History of Present Illness (Text): 03/22/18 00:49 33 year old male, with unobtainable history, presents to the emergency department via EMS for public intoxication tonight. Patient admits to drinking. HPI and ROS limited due to patient's state of intoxication. Past Medical History - Provider Review Nursing Documentation Reviewed: Yes Family/Social History - Physician Review Nursing Documentation Reviewed: Yes Family/Social History: No Known Family HX Allergies/Home Meds Allergies/Adverse Reactions: Allergies No Known Allergies Allergy (Verified 03/22/18 01:29) Home Medications: Home Meds Medication Instructions Recorded Confirmed No Known Home Med 03/22/18 03/22/18 Review of Systems - Physician Review All systems were reviewed & negative as marked: Yes - Review of Systems Systems not reviewed;Unavailable: Intoxicated Physical Exam Vital Signs Reviewed: Yes Temperature: Afebrile Blood Pressure: Normal Pulse: Regular Respiratory Rate: Normal Appearance: Positive for: Well-Appearing, Non-Toxic, Comfortable Pain Distress: None Mental Status: Positive for: other (Alert and intoxicated ) - Systems Exam Head: Present: Atraumatic, Normocephalic Pupils: Present: PERRL Extroacular Muscles: Present: EOMI Conjunctiva: Present: Normal Mouth: Present: Moist Mucous Membranes Neck: Present: Normal Range of Motion Respiratory/Chest: Present: Clear to Auscultation, Good Air Exchange. No: Respiratory Distress, Accessory Muscle Use Cardiovascular: Present: Regular Rate and Rhythm, Normal S1, S2. No: Murmurs Abdomen: No: Tenderness, Distention, Peritoneal Signs Back: Present: Normal Inspection Upper Extremity: Present: Normal Inspection. No: Cyanosis, Edema Lower Extremity: Present: Normal Inspection. No: Edema Neurological: Present: GCS=15, CN II-XII Intact, Speech Normal Skin: Present: Warm, Dry, Normal Color. No: Rashes Psychiatric: Present: Alert, Normal Insight, Normal Concentration, Intoxicated Medical Decision Making ED Course and Treatment: 03/22/18 00:45 Impression: 33 year old male presents for public intoxication tonight. Plan: -- Sobriety -- Reassess and disposition Progress Notes: 03/22/18 06:43 Patient is awake alert sober with steady gait in the emergency room - Scribe Statement The provider has reviewed the documentation as recorded by the Joseloibjessica Carrillo Provider Scribe Attestation: All medical record entries made by the Scribe were at my direction and personally dictated by me. I have reviewed the chart and agree that the record accurately reflects my personal performance of the history, physical exam, medical decision making, and the department course for this patient. I have also personally directed, reviewed, and agree with the discharge instructions and disposition. Disposition/Present on Arrival - Present on Arrival Any Indicators Present on Arrival: Yes - Disposition Have Diagnosis and Disposition been Completed?: Yes Diagnosis: Alcohol intoxication, Alcohol abuse Disposition: HOME/ ROUTINE Disposition Time: 06:44 Condition: STABLE Discharge Instructions (ExitCare): Alcohol Abuse and Alcoholism (DC) Referrals: Alcoholics Anonymous [Outside] - Follow up with primary
[2018-03-22 01:02] VITALS: BMI 25.6
[2018-03-22 06:35] VITALS: PULSE 82; RESP 16
[2018-03-22 06:36] VITALS: TEMP 98.2
[2018-03-22 06:40] VITALS: BP 119/72; O2SAT 98
== END 2018-03-22 06:57 | disposition home or self-care (01) ==
LOC: EDBD → ED 00:40 → MERGE 00:40 → ED 06:57
DX: F10.129 Alcohol abuse with intoxication, unspecified (principal)

== ENCOUNTER 2018-03-23 20:55 | Emergency (ER) | payer OTHER ==
[2018-03-23 21:12] VITALS: BMI 25.7
--- NOTE | 2018-03-23 21:40 | ED PDOC ---
Arrival/HPI - General Chief Complaint: Alcohol Ingestion Time Seen by Provider: 03/23/18 21:03 Historian: Patient - History of Present Illness Narrative History of Present Illness (Text): 03/23/18 21:15 Erik Pepper is a 42 year old male, whose past medical history includes alcohol abuse, who presents to the Emergency department brought in by EMS for alcohol intoxication. Patient was found outside inebriated and admits to drinking alcohol tonight. Patient denies any somatic complaints. Symptom Onset: Gradual Symptom Course: Unchanged Activities at Onset: Light Context: Street Past Medical History - Provider Review Nursing Documentation Reviewed: Yes - Cardiac Hx Cardiac Disorders: Yes - Pulmonary Hx Respiratory Disorders: No - Neurological Hx Neurological Disorder: No - HEENT Hx HEENT Disorder: No - Renal Hx Renal Disorder: No - Endocrine/Metabolic Hx Diabetes Mellitus Type 2: Yes - Hematological/Oncological Hx Blood Disorders: No - Integumentary Hx Dermatological Disorder: Yes (right thigh abscess) - Musculoskeletal/Rheumatological Hx Falls: No (confused) - Genitourinary/Gynecological Hx Genitourinary Disorders: No Hx Hematuria: No Hx Incontinence: No Hx Prostate Problems: No Hx Sexually Transmitted Diseases: No Hx Urinary Tract Infection: No - Psychiatric Hx Substance Use: No - Anesthesia Hx Anesthesia: No Hx Anesthesia Reactions: No Hx Malignant Hyperthermia: No Family/Social History - Physician Review Nursing Documentation Reviewed: Yes Family/Social History: Unknown Family HX Smoking Status: Current Some Days Smoker Hx Alcohol Use: Yes Hx Substance Use: No Allergies/Home Meds Allergies/Adverse Reactions: Allergies No Known Allergies Allergy (Verified 03/24/18 13:04) Home Medications: Home Meds Medication Instructions Recorded Confirmed RX: No Known Home Med 03/22/18 03/22/18 RX: Unobtainable 03/23/18 03/23/18 Review of Systems - Physician Review All systems were reviewed & negative as marked: Yes - Review of Systems Constitutional: Normal. absent: Fevers Eyes: Normal ENT: Normal Respiratory: Normal. absent: SOB, Cough Cardiovascular: Normal. absent: Chest Pain Gastrointestinal: Normal. absent: Abdominal Pain, Diarrhea, Nausea, Vomiting Genitourinary Male: Normal. absent: Dysuria, Frequency, Hematuria, Urinary Output Changes Musculoskeletal: Normal. absent: Back Pain, Neck Pain Skin: Normal. absent: Rash Neurological: Normal. absent: Headache, Dizziness Endocrine: Normal Hemo/Lymphatic: Normal Psychiatric: Normal Physical Exam Vital Signs Reviewed: Yes Vital Signs Temp Pulse Resp BP Pulse Ox 03/23/18 21:14 98.0 F 85 16 119/72 99 Temperature: Afebrile Blood Pressure: Normal Pulse: Regular Respiratory Rate: Normal Appearance: Positive for: Well-Appearing, Non-Toxic, Comfortable Pain Distress: None Mental Status: Positive for: Alert and Oriented X 3 - Systems Exam Head: Present: Atraumatic, Normocephalic Pupils: Present: PERRL Extroacular Muscles: Present: EOMI Conjunctiva: Present: Normal Mouth: Present: Moist Mucous Membranes Neck: Present: Normal Range of Motion Respiratory/Chest: Present: Clear to Auscultation, Good Air Exchange. No: Respiratory Distress, Accessory Muscle Use Cardiovascular: Present: Regular Rate and Rhythm, Normal S1, S2. No: Murmurs Abdomen: No: Tenderness, Distention, Peritoneal Signs Back: Present: Normal Inspection Upper Extremity: Present: Normal Inspection. No: Cyanosis, Edema Lower Extremity: Present: Normal Inspection. No: Edema Neurological: Present: GCS=15, CN II-XII Intact, Speech Normal Skin: Present: Warm, Dry, Normal Color. No: Rashes Psychiatric: Present: Alert, Oriented x 3, Normal Insight, Normal Concentration Medical Decision Making ED Course and Treatment: 03/23/18 21:15 Impression: 42 year old male brought in for alcohol intoxication. Plan: -- Reassess and disposition Progress Notes: - Transfer of Care Patient signed out to Dr:: ruth cheema awaiting sobriety - Scribe Statement The provider has reviewed the documentation as recorded by the Milvia Lau Provider Scribe Attestation: All medical record entries made by the Scribe were at my direction and personally dictated by me. I have reviewed the chart and agree that the record accurately reflects my personal performance of the history, physical exam, medical decision making, and the department course for this patient. I have also personally directed, reviewed, and agree with the discharge instructions and disposition. Disposition/Present on Arrival - Present on Arrival Any Indicators Present on Arrival: No History of DVT/PE: Yes History of Uncontrolled Diabetes: No Urinary Catheter: No History of Decub. Ulcer: No History Surgical Site Infection Following: None - Disposition Have Diagnosis and Disposition been Completed?: Yes Diagnosis: Alcohol intoxication Disposition: HOME/ ROUTINE Disposition Time: :00 Condition: GOOD Discharge Instructions (ExitCare): Alcohol Use - When Is Drinking a Problem?, Alcohol Abuse and Alcoholism (DC) Print Language: MARTINIQUAIS Additional Instructions: DECREASE THE AMOUNT OF ALCOHOL YOU ARE DRINKING. IT CAN BE BAD FOR you ERIK PEPPER, thank you for letting us take care of you today. Your provider was Lewis Cheema and you were treated for ETOH. The emergency medical care you received today was directed at your acute symptoms. If you were prescribed any medication, please fill it and take as directed. It may take several days for your symptoms to resolve. Return to the Emergency Department if your symptoms worsen, do not improve, or if you have any other problems. Please contact your doctor or call one of the physicians/clinics you have been referred to that are listed on the Patient Visit Information form that is included in your discharge packet. Bring any paperwork you were given at discharge with you along with any medications you are taking to your follow up visit. Our treatment cannot replace ongoing medical care by a primary care provider outside of the emergency department. Thank you for allowing the [facility] team to be part of your care today. If you had an X-Ray or CT scan: A Radiologist will review the ED reading if any change in treatment is needed we will contact you. If you had a blood, urine, or wound culture: It will take several days for the results, if any change in treatment is needed we will contact you. If you had an STI test: It will take 48 hours for the results. Please call after 1 week if you have not heard back. Referrals: [facility] [Outside] - Follow up with primary [facility] [Outside] - Follow up with primary [facility] [Outside] - Follow up with primary [facility] [Outside] - Follow up with primary Peyton Trejo MD [Medical Doctor] - Follow up with primary Forms: [facility] (Burkinan), [facility] (Guinean)
[2018-03-24 06:55] VITALS: RESP 18
[2018-03-24 09:03] VITALS: O2SAT 99
[2018-03-24 09:04] VITALS: BP 134/79; PULSE 90; TEMP 98.4
--- NOTE | 2018-03-24 09:10 | ED PDOC ---
Physical Exam Vital Signs Temp Pulse Resp BP Pulse Ox 03/24/18 09:03 98.4 F 90 18 134/79 99 03/24/18 07:30 80 18 129/72 99 03/24/18 06:53 83 18 129/82 98 03/24/18 04:05 75 16 122/71 95 03/24/18 02:53 94 H 18 112/62 95 03/24/18 01:29 77 16 117/69 99 03/23/18 21:14 98.0 F 85 16 119/72 99 Medical Decision Making ED Course and Treatment: 03/24/18 09:07 Case endorsed to me by Dr. Null for pending sobriety. Patient is a 42 year old male, with history of alcohol abuse, who presented to the ED earlier s/p alcohol intoxication. Patient is now clinically sober without any withdrawing symptoms. Patient appears strong with steady gait and shows no signs of trauma. Patient was given instructions for decrease alcohol use. Patient is stable for discharge. - Medication Orders Current Medication Orders: Discontinued Medications Ziprasidone (Geodon Inj) 10 mg IM STAT STA; Protocol Stop: 03/23/18 22:23 Last Admin: 03/23/18 22:36 Dose: 10 mg IM Administration Charges Document 03/23/18 22:36 CNR (Rec: 03/23/18 22:36 CNR [id number]) Injection Site MAR Injection Site Right Vastus Lateralis Charges for Administration # of IM Administrations 1 - Scribe Statement The provider has reviewed the documentation as recorded by the Scribe Leonardo Cuellar. All medical record entries made by the Scribe were at my direction and personally dictated by me. I have reviewed the chart and agree that the record accurately reflects my personal performance of the history, physical exam, medical decision making, and the department course for this patient. I have also personally directed, reviewed, and agree with the discharge instructions and disposition. Disposition/Present on Arrival - Present on Arrival History of DVT/PE: Yes History of Uncontrolled Diabetes: No Urinary Catheter: No History of Decub. Ulcer: No History Surgical Site Infection Following: None - Disposition Diagnosis: Alcohol intoxication Disposition: HOME/ ROUTINE Patient Problems: Current Active Problems Problem Status Onset Alcohol intoxication Acute Condition: GOOD Discharge Instructions (ExitCare): Alcohol Use - When Is Drinking a Problem?, Alcohol Abuse and Alcoholism (DC) Print Language: BURMESE Additional Instructions: DECREASE THE AMOUNT OF ALCOHOL YOU ARE DRINKING. IT CAN BE BAD FOR you MUMTAZ PEPPER, thank you for letting us take care of you today. Your provider was Lewis Macario and you were treated for ETOH. The emergency medical care you received today was directed at your acute symptoms. If you were prescribed any medication, please fill it and take as directed. It may take several days for your symptoms to resolve. Return to the Emergency Department if your symptoms worsen, do not improve, or if you have any other problems. Please contact your doctor or call one of the physicians/clinics you have been referred to that are listed on the Patient Visit Information form that is included in your discharge packet. Bring any paperwork you were given at discharge with you along with any medications you are taking to your follow up visit. Our treatment cannot replace ongoing medical care by a primary care provider outside of the emergency department. Thank you for allowing the [facility] team to be part of your care today. If you had an X-Ray or CT scan: A Radiologist will review the ED reading if any change in treatment is needed we will contact you. If you had a blood, urine, or wound culture: It will take several days for the results, if any change in treatment is needed we will contact you. If you had an STI test: It will take 48 hours for the results. Please call after 1 week if you have not heard back. Referrals: [facility] [Outside] - Follow up with primary [facility] [Outside] - Follow up with primary [facility] [Outside] - Follow up with primary [facility] [Outside] - Follow up with primary Peyton Trejo MD [Medical Doctor] - Follow up with primary Forms: [facility] (Romanian), [facility] (Lao)
== END 2018-03-24 09:19 | disposition home or self-care (01) ==
LOC: ED 20:55
DX: F10.129 Alcohol abuse with intoxication, unspecified (principal); E11.9 Type 2 diabetes mellitus without complications
CPT/HCPCS: 96372; 99284; J3486

== ENCOUNTER 2018-04-11 23:08 | Emergency (ER) | payer SELFPAY ==
[2018-04-11 23:08] VITALS: BMI 25.6
[2018-04-11 23:22] VITALS: RESP 18
--- NOTE | 2018-04-11 23:43 | ED PDOC ---
Arrival/HPI - General Historian: Patient EM Caveat: Intoxicated - History of Present Illness Narrative History of Present Illness (Text): 04/11/18 23:33 42 year old male, whose past medical history includes alcohol abuse, presents to the emergency department for alcohol intoxication tonight. Patient admits to drinking. Patient have no complaints at present time. HPI and ROS limited due to patient's state of intoxication. <Kassy Malone PA-C - Last Filed: 04/12/18 00:39> <Hernan Steiner - Last Filed: 04/12/18 06:23> - General Chief Complaint: Alcohol Ingestion Time Seen by Provider: 04/11/18 23:28 Past Medical History - Provider Review Nursing Documentation Reviewed: Yes - Infectious Disease Hx of Infectious Diseases: None - Cardiac Hx Cardiac Disorders: Yes - Pulmonary Hx Respiratory Disorders: No - Neurological Hx Neurological Disorder: No - HEENT Hx HEENT Disorder: No - Renal Hx Renal Disorder: No - Endocrine/Metabolic Hx Diabetes Mellitus Type 2: Yes - Hematological/Oncological Hx Blood Disorders: No - Integumentary Hx Dermatological Disorder: Yes (right thigh abscess) - Musculoskeletal/Rheumatological Hx Falls: No (confused) - Genitourinary/Gynecological Hx Genitourinary Disorders: No Hx Hematuria: No Hx Incontinence: No Hx Prostate Problems: No Hx Sexually Transmitted Diseases: No Hx Urinary Tract Infection: No - Psychiatric Hx Substance Use: No - Anesthesia Hx Anesthesia: No Hx Anesthesia Reactions: No Hx Malignant Hyperthermia: No <Kassy Malone PA-C - Last Filed: 04/12/18 00:39> Family/Social History - Physician Review Nursing Documentation Reviewed: Yes Family/Social History: No Known Family HX Smoking Status: Unknown If Ever Smoked Hx Alcohol Use: Yes Frequency of alcohol use: Daily Hx Substance Use: No <Kassy Malone PA-C - Last Filed: 04/12/18 00:39> Allergies/Home Meds <Kassy Malone PA-C - Last Filed: 04/12/18 00:39> <Hernan Steiner - Last Filed: 04/12/18 06:23> Allergies/Adverse Reactions: Allergies No Known Allergies Allergy (Verified 03/24/18 13:04) Home Medications: Home Meds Medication Instructions Recorded Confirmed No Known Home Med 03/22/18 03/22/18 Unobtainable 03/23/18 03/23/18 Review of Systems - Physician Review All systems were reviewed & negative as marked: Yes - Review of Systems Systems not reviewed;Unavailable: Intoxicated <Kassy Malone PA-C - Last Filed: 04/12/18 00:39> Physical Exam Vital Signs Reviewed: Yes Vital Signs Temp Pulse Resp BP Pulse Ox 04/11/18 23:21 98.4 F 89 18 125/76 98 Temperature: Afebrile Blood Pressure: Normal Pulse: Regular Respiratory Rate: Normal Appearance: Positive for: Well-Appearing, Non-Toxic, Comfortable Pain Distress: None Mental Status: Positive for: other (intoxication) Finger Stick Blood Glucose: 155 - Systems Exam Head: Present: Atraumatic, Normocephalic Pupils: Present: PERRL Extroacular Muscles: Present: EOMI Conjunctiva: Present: Normal Mouth: Present: Moist Mucous Membranes, Other (AOB) Neck: Present: Normal Range of Motion Respiratory/Chest: Present: Clear to Auscultation, Good Air Exchange. No: Respiratory Distress, Accessory Muscle Use Cardiovascular: Present: Regular Rate and Rhythm, Normal S1, S2. No: Murmurs Abdomen: No: Tenderness, Distention, Peritoneal Signs Back: Present: Normal Inspection Upper Extremity: Present: Normal Inspection. No: Cyanosis, Edema Lower Extremity: Present: Normal Inspection. No: Edema Skin: Present: Warm, Dry, Normal Color. No: Rashes Psychiatric: Present: Alert, Intoxicated <Kassy Malone PA-C - Last Filed: 04/12/18 00:39> Vital Signs Temp Pulse Resp BP Pulse Ox 04/11/18 23:21 98.4 F 89 18 125/76 98 <Hernan Steiner - Last Filed: 04/12/18 06:23> Medical Decision Making ED Course and Treatment: 04/11/18 23:33 Impression: 42 year old male presents for alcohol intoxication tonight. Plan: -- observe until clinically sober -- fs -- Reassess and disposition Prior Visits: Notes and results from previous visits were reviewed. Progress Notes: 04/12/18 00:40 FS 155. Patient is sleeping comfortably in bed, breathing easy and unlabored. We will continue to observe until patient is clinically sober. <Kassy Malone PA-C - Last Filed: 04/12/18 00:39> ED Course and Treatment: 04/12/18 06:22 pt awake and alert, clear speech and steady gait. stable for dc <Hernan Steiner - Last Filed: 04/12/18 06:23> - PA / SENIOR SYSTEMS ENGINEER / Resident Statement MD/DO has reviewed & agrees with the documentation as recorded. - Scribe Statement The provider has reviewed the documentation as recorded by the Milvia Carrillo Provider Scribe Attestation: All medical record entries made by the Milvia were at my direction and person ally dictated by me. I have reviewed the chart and agree that the record accurately reflects my personal performance of the history, physical exam, medical decision making, and the department course for this patient. I have also personally directed, reviewed, and agree with the discharge instructions and disposition. <Kassy Malone PA-C - Last Filed: 04/12/18 00:39> Disposition/Present on Arrival - Present on Arrival Any Indicators Present on Arrival: No History of DVT/PE: No History of Uncontrolled Diabetes: No Urinary Catheter: No History of Decub. Ulcer: No History Surgical Site Infection Following: None - Disposition Have Diagnosis and Disposition been Completed?: Yes <Kassy Malone PA-C - Last Filed: 04/12/18 00:39> - Disposition Disposition Time: 06:23 Patient Plan: Discharge <Hernan Steiner - Last Filed: 04/12/18 06:23> - Disposition Diagnosis: Alcohol intoxication Disposition: HOME/ ROUTINE Patient Problems: Current Active Problems Problem Status Onset Alcohol intoxication Acute Condition: STABLE Discharge Instructions (ExitCare): Alcohol Abuse and Alcoholism (DC) Print Language: OMANI Referrals: [facility] at [facility] [place] [Outside] - Follow up with primary Forms: [employer] (Guyanese)
[2018-04-12 06:25] VITALS: BP 115/82; PULSE 81; TEMP 98.2; O2SAT 97
== END 2018-04-12 06:25 | disposition home or self-care (01) ==
LOC: ED 23:08
DX: F10.129 Alcohol abuse with intoxication, unspecified (principal); E11.9 Type 2 diabetes mellitus without complications